=== PATIENT | female | born 1955 | race Hispanic/Latino ===

== ENCOUNTER → 2023-07-07 | Outpatient (CLI) | payer MEDICARE ==
[2023-07-07 12:27] LABS: CREATININE 0.7 mg/dL (0.5-1.5)
== END | disposition home or self-care (01) ==
LOC: LAB 10:05
PROVIDERS: ATTEND Internal Medicine
DX: I10 Essential (primary) hypertension (principal)
CPT/HCPCS: 36415; 82565; 84520

== ENCOUNTER → 2023-07-08 | Outpatient (CLI) | payer MEDICARE ==
[~2023-07-08] MED LIST: IOHEXOL 350 MG/ML 100ML INFUS..BTL IV ONE; METOPROLOL TARTRATE 1 MG/ML 5ML VIAL IV ONE
== END | disposition home or self-care (01) ==
LOC: RAH 08:50
PROVIDERS: ATTEND Internal Medicine
DX: I25.10 Atherosclerotic heart disease of native coronary artery without angina pectoris (principal); R07.9 Chest pain, unspecified
CPT/HCPCS: 75574; J3490; Q9967

== ENCOUNTER 2024-08-31 05:38 | Day surgery (SDC) | payer MEDICARE ==
[2024-08-31] VITALS (10 sets, daily range): BP systolic 99–146; BP diastolic 50–66; PULSE 57–67; RESP 14–17; TEMP 97.3–97.7
[~2024-08-31] VITALS: Ht 147.3 cm; Wt 57.6 kg
[2024-08-31] MEDS ORDERED: METO-391 PO (06:24)
[2024-08-31] MEDS ORDERED: DONE10TA43 PO (06:24)
[2024-08-31] MEDS ORDERED: CLOP-31 PO (06:24)
[2024-08-31] MEDS ORDERED: LISI20TA24 PO (06:24)
[2024-08-31] MEDS ORDERED: MEMA10TA21 PO (06:24)
[2024-08-31] MEDS ORDERED: ASPI-1005 PO (06:24)
[2024-08-31] MEDS ORDERED: ATOR40TA69 PO (06:24)
[2024-08-31] MEDS ORDERED: PANT40TA54 PO (06:24)
[2024-08-31] MEDS ORDERED: METF-444 PO (06:24)
[2024-08-31] MEDS: 0.9%NACL 1000ML 1,000 ML IV ONE (06:28)
[2024-08-31] MEDS ORDERED: LIDOCAINE HCL 1% 20 ML VIAL ONE (07:10)
[2024-08-31] MEDS ORDERED: proPOFol 10 MG/ML 20ML VIAL IV ONE (07:10)
--- NOTE | 2024-08-31 08:42 | NUR ---
Full and complete Discharge Instructions given to Patient and Family both verbally and in writing.. All questions answered.Voiced understanding to GI procedure precautions and Follow Up. PIV removed with catheter tip intact. Denies c/o pain or discomfort. W/C to POV with Family to home
== END 2024-08-31 08:37 | disposition home or self-care (01) ==
LOC: DAH 05:38 → ENDO 05:38
PROVIDERS: ATTEND Internal Medicine
DX: Z12.11 Encounter for screening for malignant neoplasm of colon (principal); K29.50 Unspecified chronic gastritis without bleeding; K31.811 Angiodysplasia of stomach and duodenum with bleeding; R12 Heartburn; G30.9 Alzheimer's disease, unspecified; I25.10 Atherosclerotic heart disease of native coronary artery without angina pectoris; Z88.0 Allergy status to penicillin; Z88.1 Allergy status to other antibiotic agents; Z79.899 Other long term (current) drug therapy
CPT/HCPCS: 43255; 82948 ×2; 43239; G0121; J7030 ×2; J2704; A4620; A4215 ×2; A4223; A4222; A4221; A4663; A4606; J3490